=== PATIENT | male | born 1940 | race Caucasian/White ===

== ENCOUNTER 2018-10-11 23:34 | Emergency (ER) | payer OTHER ==
[~2018-10-11] VITALS: Ht 170.2 cm; Wt 64.7 kg
[2018-10-11 23:41] VITALS: Ht 170.2 cm; Wt 64.7 kg
[2018-10-12 07:56] VITALS: BP 128/76; PULSE 89; RESP 18
== END 2018-10-12 07:58 | disposition home or self-care (01) ==
LOC: E/R 23:34
DX: F10.129 Alcohol abuse with intoxication, unspecified (principal); D64.9 Anemia, unspecified; D72.819 Decreased white blood cell count, unspecified; N28.9 Disorder of kidney and ureter, unspecified; R40.4 Transient alteration of awareness
CPT/HCPCS: 70450; 80053; 80307; 81001; 83690; 85025; 85610; 85730